=== PATIENT | male | born 2000 | race Caucasian/White ===

== ENCOUNTER 2020-06-24 19:32 | Emergency (ER) | payer OTHER ==
[~2020-06-24] VITALS: Ht 198.1 cm; Wt 102.1 kg
[~2020-06-24 19:32] MED LIST: ZOFRAN ODT4 MG SL
[2020-06-24] MEDS ORDERED: AUGMENTIN 875875 MG PO (21:15)
== END 2020-06-24 21:45 | disposition home or self-care (01) ==
LOC: ED 19:32
DX: K02.9 Dental caries, unspecified (principal); K59.00 Constipation, unspecified

== ENCOUNTER 2021-07-21 16:11 | Emergency (ER) | payer OTHER ==
[~2021-07-21] VITALS: Ht 195.5 cm; Wt 108.9 kg
[~2021-07-21 16:11] MED LIST changes: +AUGMENTIN 875875 MG PO
[2021-07-21] MEDS ORDERED: IBUPROFEN600 MG PO (21:19)
== END 2021-07-21 21:19 | disposition home or self-care (01) ==
LOC: ED 16:11
DX: J02.9 Acute pharyngitis, unspecified (principal); Z20.822 Contact with and (suspected) exposure to COVID-19

== ENCOUNTER 2023-07-04 18:11 | Emergency (ER) | payer OTHER ==
[~2023-07-04] VITALS: Ht 198.1 cm; Wt 108.9 kg
[~2023-07-04 18:11] MED LIST changes: +IBUPROFEN600 MG PO
== END 2023-07-04 21:20 | disposition home or self-care (01) ==
LOC: ED 18:11
DX: M25.551 Pain in right hip (principal)

== ENCOUNTER 2023-09-14 12:56 | Emergency (ER) | payer OTHER ==
[~2023-09-14] VITALS: Ht 195.5 cm; Wt 102.1 kg
[2023-09-14] MEDS ORDERED: Ondansetron Hydrochloride 4 MG TAB SL ONE (13:20)
[2023-09-14] MEDS ORDERED: ONDANSETRON4 MG SL (14:27)
== END 2023-09-14 15:07 | disposition home or self-care (01) ==
LOC: ED 12:56
DX: B34.9 Viral infection, unspecified (principal); R11.0 Nausea; Z20.822 Contact with and (suspected) exposure to COVID-19

== ENCOUNTER 2024-01-23 23:39 | Emergency (ER) | payer OTHER ==
[~2024-01-23] VITALS: Ht 195.5 cm; Wt 79.4 kg
[~2024-01-23 23:39] MED LIST changes: +ONDANSETRON4 MG SL
[2024-01-24] MEDS ORDERED: Ondansetron Hydrochloride 4 MG/2 ML VIAL IV ONE (00:15)
[2024-01-24] MEDS ORDERED: SODIUM CHLORIDE 0.9% 1,000 ML IV ONE (00:15)
[2024-01-24] MEDS ORDERED: FAMOTIDINE 50 ML IV ONE (00:15)
[2024-01-24 00:38] LABS: BASO # 0.1 10*3/uL (0.0-0.1); BASO % 0.5 % (0.0-1.0); EOS % 0.4 % (1.0-4.0); LYMPH # 2.1 10*3/uL (1.3-4.4); LYMPH % 20.7 % (27.0-41.0); MEAN CELL VOLUME 86.7 fl (80.0-94.0); MEAN CORPUSCULAR HGB 29.9 pg (27.0-31.0); MEAN CORPUSCULAR HGB CONC 34.4 g/dl (33.0-37.0); MEAN PLATELET VOLUME 9.6 fl (9.6-12.3); MONO # 0.9 10*3/uL (0.1-1.0); MONO % 9.2 % (3.0-9.0); NEUT # 6.9 10*3/uL (2.3-7.9); PLATELET COUNT AUTOMATED 202 10*3/uL (130-400); RED BLOOD COUNT 5.19 10*6/uL (4.50-5.90); RED CELL DISTRI WIDTH 12.6 % (0-14.5)
[2024-01-24 01:00] LABS: ALKALINE PHOSPHATASE 60 U/L (46-116); BUN 9 mg/dl (9-23); CHLORIDE 107 mmol/L (98-107); LIPASE 44 U/L (12-53); POTASSIUM 3.4 mmol/L (3.4-5.1); SGPT/ALT 8 U/L (5-49); TOTAL PROTEIN 7.4 gm/dL (6.0-8.0)
[2024-01-24 01:21] LABS: BILIRUBIN Negative (Negative); BLOOD 1+ (Negative); CLARITY Clear (Clear); COLOR Yellow (Yellow); GLUCOSE Negative (Negative); KETONE Negative (Negative); LEUKO ESTERASE Negative (Negative); NITRITE Negative (Negative); PH 6.5 (4.5-8.0)
[2024-01-24 01:32] LABS: CALCIUM OXALATE CRYSTALS 1+
[2024-01-24 01:33] LABS: RBC 16-20 rbc/hpf (0-2); WBC 0-2 wbc/hpf (0-5)
== END 2024-01-24 03:30 | disposition left against medical advice (07) ==
LOC: ED 23:39
PROVIDERS: Emergency Medicine
DX: R31.9 Hematuria, unspecified (principal); R10.9 Unspecified abdominal pain; R11.10 Vomiting, unspecified; Z53.29 Procedure and treatment not carried out because of patient's decision for other reasons